=== PATIENT | female | born 1960 | race African-American/Black ===

== ENCOUNTER 2017-10-08 10:37 | Emergency (ER) | payer OTHER ==
[~2017-10-08] VITALS: Ht 160 cm; Wt 97.5 kg
[~2017-10-08 10:37] MED LIST: ASPIR 8181 MG ORAL; CYCLOBENZAPRINE10 MG ORAL; HYDROCHLOROTHIA25 MG ORAL; IBUPROFEN800 MG ORAL; METFORMIN HCL500 M1 ORAL; NORVASC10 MG ORAL; TRAMADOL HCL50 MG ORAL
[2017-10-08] MEDS ORDERED: GLIPIZIDE5 MG ORAL (10:47)
[2017-10-08] MEDS ORDERED: NAPROXEN500 M2 ORAL (10:47)
[2017-10-08] MEDS ORDERED: METFORMIN HCL1000 M1 ORAL (10:47)
[2017-10-08] MEDS ORDERED: JANUVIA100 MG ORAL (10:47)
[2017-10-08] MEDS ORDERED: LIDOCAINE700 M1 TP (11:07)
[2017-10-08] MEDS ORDERED: ROBAXIN-750750 MG PO (11:07)
[2017-10-08] MEDS ORDERED: Acetaminophen 500mg (ES) tab ORAL ONE (11:15)
[2017-10-08 11:18] VITALS: BP 180/96
[2017-10-08 11:19] VITALS: BP 180/96
--- NOTE | 2017-10-08 11:36 | Emergency Room Report ---
History of Present Illness General Chief Complaint: Lower Back Pain or Injury Source: Patient Present Illness HPI 57-year-old female, sitting hypertension diabetes p/w back pain for 2 days. Patient states pain started when she bent down to lift something heavy. Pain is localized to right lower back, sharp in nature, radiating down leg. Movement worsens pain. There are no alleviating factors. Patient took pain medications with minimal relief. This is the first occurrence of back pain. Denies trauma. Denies lower extremity weakness/numbness, no bowel/bladder retention or incontinence, saddle anesthesia. Denies fever, chills, abdominal pain, n/v, dysuria/hematuria. No history of IVDA Allergies: Coded Allergies: No Known Allergies (Unverified , 05/17/14) Patient History Past Medical History: see triage record Past Surgical History: none Pertinent Family History: none Last Menstrual Period: Post Reviewed Nursing Documentation: PMH: Agreed, PSxH: Agreed Nursing Documentation-PMH Hx Hypertension: Yes Hx Diabetes: Yes - DM2 Review of Systems All Other Systems: negative except mentioned in HPI Physical Exam Vital Signs Date Time Temp Pulse Resp B/P (MAP) Pulse Ox O2 Delivery O2 Flow Rate FiO2 10/08/17 10:40 98.0 94 19 188/106 97 Room Air 98.1 Sp02 EP Interpretation: reviewed, normal General Appearance: normal inspection, well appearing, no apparent distress, alert, GCS 15, non-toxic Head: normocephalic, atraumatic Eyes: bilateral eye normal inspection, bilateral eye PERRL, bilateral eye EOMI ENT: normal ENT inspection, normal pharynx, normal voice, moist mucus membranes Neck: normal inspection, full range of motion, supple Respiratory: normal inspection, lungs clear, normal breath sounds, no respiratory distress, no retraction, no wheezing, speaking full sentences, chest symmetrical Cardiovascular #1: normal inspection, regular rate, rhythm, no edema, normal capillary refill Cardiovascular #2: 2+ radial (R), 2+ radial (L) Gastrointestinal: normal inspection, non tender, soft, non-distended, no guarding Musculoskeletal: other - Right-sided paraspinal lower lumbar tenderness, no midline tenderness, full range of motion arteries, able to bear weight on both legs, gait is normal Neurologic: normal inspection, alert, oriented x3, responsive, motor strength/ tone normal, sensory intact, normal gait, speech normal Psychiatric: normal inspection, judgement/insight normal, memory normal Skin: normal inspection, normal color, no rash, warm/dry, well hydrated, normal turgor Medical Decision Making Diagnostic Impression: Primary Impression: Low back pain ER Course 57-year-old female p/w back pain DDX: Likely musculoskeletal back pain vs. muscular strain vs. sciatica Lumbar fracture is unlikely given patients age, no midline tenderness, no history of trauma, and that patient is ambulatory. Therefore, at this time no imaging is indicated Serious diagnoses such as cord compression, epidural abscess is unlikely in this patient given the clinical scenario and abscess of neurological symptoms or findings. Patient appears nontoxic. Plan: Tylenol, lidocaine patch ER course: Patient has remained nontoxic appearing and ambulatory in the ED. Pain improved w/ medications Disposition: Patient will be discharged to home with prescription of Robaxin and lidocaine patch Strict precautions discussed with patient on when to emergently return to the ED which includes severe/worsening back pain, leg weakness/numbness, urinary retention/incontinence, fever or chills, which may indicate severe illness. Patient is to follow up with their PMD within 5 days. Patient agrees with plan. Please note that this Emergency Department Report was dictated using [employer] paster technology software, occasionally this can lead to erroneous entry secondary to interpretation by the dictation equipment. Last Vital Signs Date Time Temp Pulse Resp B/P (MAP) Pulse Ox O2 Delivery O2 Flow Rate FiO2 10/08/17 11:19 98.0 94 19 180/96 97 Room Air 208.4 Disposition: HOME, SELF-CARE Condition: Improved Scripts Methocarbamol* (ROBAXIN-750*) 750 Mg Tablet 750 MG PO QID, #28 TAB 0 Refills Prov: Mitchel Mitchell M.D. 10/08/17 Lidocaine (Lidocaine) 1 Each Adh..patch 700 MG TP EVERY 12 HOURS, #30 PATCH Prov: Mitchel Mitchell M.D. 10/08/17 Referrals: [facility] (PCP) Patient Instructions: Back Pain, Adult Mitchel Mitchell M.D. Oct 08, 2017 11:36
== END 2017-10-08 11:21 | disposition home or self-care (01) ==
LOC: EMR 10:52
DX: M54.5 Low back pain (principal); I10 Essential (primary) hypertension; E11.9 Type 2 diabetes mellitus without complications
CPT/HCPCS: 99284

== ENCOUNTER 2018-05-21 20:38 | Emergency (ER) | payer OTHER ==
[~2018-05-21] VITALS: Ht 162.6 cm; Wt 101.2 kg
[~2018-05-21 20:38] MED LIST changes: +GLIPIZIDE5 MG ORAL; +JANUVIA100 MG ORAL; +LIDOCAINE700 M1 TP; +METFORMIN HCL1000 M1 ORAL; +NAPROXEN500 M2 ORAL; +ROBAXIN-750750 MG PO
[2018-05-21] MEDS ORDERED: AZOPT10 ML OP (20:47)
[2018-05-21 20:49] VITALS: BP 155/72
[2018-05-21] MEDS ORDERED: Tylenol #3 tab (300mg/30mg) ORAL ONE (21:15)
[2018-05-21] MEDS ORDERED: SILVADENE20 GM TP (21:17)
[2018-05-21] MEDS ORDERED: ACETAMINOPHEN-1 EAC1 ORAL (21:17)
[2018-05-21] MEDS ORDERED: CEPHALEXIN500 MG ORAL (21:28)
[2018-05-21] MEDS ORDERED: FLUCONAZOLE150 MG ORAL (21:28)
[2018-05-21 21:34] VITALS: BP 147/76
[2018-05-21 21:35] VITALS: BP 147/76
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
== END 2018-05-21 21:35 | disposition home or self-care (01) ==
LOC: EMR 21:13
DX: T65.891A Toxic effect of other specified substances, accidental (unintentional), initial encounter (principal); T21.52XA Corrosion of first degree of abdominal wall, initial encounter; T32.0 Corrosions involving less than 10% of body surface; Y92.89 Other specified places as the place of occurrence of the external cause; E11.9 Type 2 diabetes mellitus without complications
CPT/HCPCS: 99283

== ENCOUNTER 2019-05-14 20:11 | Emergency (ER) | payer OTHER ==
[~2019-05-14] VITALS: Ht 160 cm; Wt 96.2 kg
[~2019-05-14 20:11] MED LIST changes: +ACETAMINOPHEN-1 EAC1 ORAL; +AZOPT10 ML OP; +CEPHALEXIN500 MG ORAL; +FLUCONAZOLE150 MG ORAL; +SILVADENE20 GM TP
--- NOTE | 2019-05-14 20:17 | NUR ---
Called pt; currently not in waiting room.
--- NOTE | 2019-05-14 20:25 | NUR ---
Pt no longer in waiting room
[2019-05-14 21:00] VITALS: BP 150/88
--- NOTE | 2019-05-14 21:00 | NUR ---
ED Nurse Note: Patient walked into ED c/o left ear abscess that has been an ongoing issue for the past few days, patient rates her pain a 6/10 pain. patient is alert and oriented 4, patient placed Tx2. will wait for further orders
[2019-05-14] MEDS ORDERED: Lidocaine 1% Plain 30 ml INJ ONE (21:15)
[2019-05-14] MEDS ORDERED: MUPIROCIN22 GM TOPIC (21:25)
[2019-05-14] MEDS ORDERED: BACTRIM DS TAB1 EAC1 ORAL (21:25)
[2019-05-14] MEDS ORDERED: FLUCONAZOLE150 MG ORAL (21:25)
--- NOTE | 2019-05-14 21:25 | Emergency Room Report ---
History of Present Illness General Chief Complaint: Skin Rash/Abscess Source: Patient Present Illness HPI This is a 58-year-old female who presents with left ear pain. She woke up yesterday with a small swelling to the back of her left ear over where she had a piercing done 13 years ago. She try to squeeze it and is not getting better. Initially she said there was some pus that came out but it got more swollen. No fever chills. Worse with palpation. Denies any other complaint. Her pain is 7 out of 10. Allergies: Coded Allergies: No Known Allergies (Unverified , 05/17/14) Patient History Past Medical History: see triage record, old chart reviewed Past Surgical History: none Pertinent Family History: none Social History: Denies: smoking Last Menstrual Period: na Now: No Immunizations: other Reviewed Nursing Documentation: PMH: Agreed; PSxH: Agreed Nursing Documentation-PMH Hx Hypertension: Yes Hx Diabetes: Yes - DM2 Review of Systems Eye: Denies: eye pain, blurred vision ENT: Denies: ear pain, nose congestion, throat swelling Respiratory: Denies: cough, shortness of breath Cardiovascular: Denies: chest pain, palpitations Gastrointestinal: Denies: abdominal pain, diarrhea, nausea, vomiting Musculoskeletal: Denies: back pain, joint pain Skin: Denies: rash Neurological: Denies: headache, numbness Endocrine: Denies: increased thirst, increased urine Hematologic/Lymphatic: Denies: easy bruising All Other Systems: negative except mentioned in HPI Physical Exam Vital Signs Date Time Temp Pulse Resp B/P (MAP) Pulse Ox O2 Delivery O2 Flow Rate FiO2 05/14/19 20:56 98.2 98 16 157/102 (120) 96 Vitals with high blood pressure Sp02 EP Interpretation: reviewed, normal General Appearance: well appearing, no apparent distress, alert Head: normocephalic, atraumatic Eyes: bilateral eye PERRL, bilateral eye EOMI ENT: hearing grossly normal, normal pharynx Neck: full range of motion, supple, no meningismus, other - Left ear: On the back of the ear near the top, there is a small erythema and swelling. Tender to palpation. Less than 1 cm. Respiratory: chest non-tender, lungs clear, normal breath sounds Cardiovascular #1: regular rate, rhythm, no murmur Gastrointestinal: normal bowel sounds, non tender, no mass, no organomegaly, no bruit, non-distended Musculoskeletal: back normal, gait/station normal, normal range of motion Psychiatric: mood/affect normal Procedures Incision and Drainage Incision and Drainage : Consent: Verbal Site: Left ear Blade Size: 11 I & D Procedure: betadine prep Wound Location: other - Ear, left Patient Tolerated: Well Complications: None Progress Area cleaned with Betadine and chlorhexidine. Using insulin needle, I injected 0.1 cc of 1% lidocaine without epinephrine. I made a small incision and expressed small amount of pus. Patient tolerated procedure without any problem. Medical Decision Making Diagnostic Impression: Primary Impression: Abscess of left external ear ER Course Patient with small abscess of her ear. Will discharge home. Last Vital Signs Date Time Temp Pulse Resp B/P (MAP) Pulse Ox O2 Delivery O2 Flow Rate FiO2 05/14/19 20:56 98.2 98 16 157/102 (120) 96 Status: improved Disposition: HOME, SELF-CARE Condition: Stable Scripts Fluconazole (FLUCONAZOLE) 150 Mg Tablet 150 MG ORAL DAILY, #1 TAB 0 Refills Prov: Messi Argueta MD 05/14/19 Trimethoprim/Sulfamethoxazole 160/800* (BACTRIM DS TABLET*) 1 Each Tablet 1 TAB ORAL Q12H, #14 TAB 0 Refills Prov: Messi Argueta MD 05/14/19 Mupirocin* (MUPIROCIN*) 22 Gm Oint...g. 1 APPLIC TOPIC THREE TIMES A DAY, #22 GM Prov: Messi Argueta MD 05/14/19 Patient Instructions: Abscess Additional Instructions: Follow-up with your doctor in 7 days. Return if worse. Messi Argueta MD May 14, 2019 21:25
[2019-05-14 21:30] VITALS: BP 142/80
--- NOTE | 2019-05-14 21:30 | NUR ---
ER DISCHARGE NOTE: Patient is cleared to be discharged per ERMD, pt is aox4, on room air, with stable vital signs. pt was given dc instructions, pt was able to verbalize understanding, pt id band and removed without complications. pt is able to ambulate with steady gait. pt took all belongings.
== END 2019-05-14 21:30 | disposition home or self-care (01) ==
LOC: EMR 21:29
DX: H60.02 Abscess of left external ear (principal); E11.9 Type 2 diabetes mellitus without complications; I10 Essential (primary) hypertension
CPT/HCPCS: 69000; J2001; Z7502; 99283

== ENCOUNTER 2020-01-01 20:07 | Emergency (ER) | payer OTHER ==
[~2020-01-01] VITALS: Ht 160 cm; Wt 89.8 kg
[~2020-01-01 20:07] MED LIST changes: +BACTRIM DS TAB1 EAC1 ORAL; +MUPIROCIN22 GM TOPIC
[2020-01-01 20:20] VITALS: BP 132/80
--- NOTE | 2020-01-01 20:20 | NUR ---
ED Nurse Note: pt ambulated into ed from home CO rash on lower stomach x 3 weeks. Pt stated that she had a telehealth visit with PCP 2 weeks ago and was prescribed 2 types of topical creams for affected area. Noteable redness in localized area. Pt aao x 4, ambulatory with steady gait. Awaiting ERMD at bedside.
--- NOTE | 2020-01-01 20:20 | NUR ---
ED Nurse Note: Pt states topical creams previously prescribed are clotrimazole and triple antibiotic
--- NOTE | 2020-01-01 20:35 | NUR ---
ED Nurse Note: ERMD at bedside
--- NOTE | 2020-01-01 20:36 | Emergency Room Report ---
History of Present Illness General Chief Complaint: Skin Rash/Abscess Source: Patient Present Illness HPI This patient states that she has had a rash in between the folds of her fat rolls on her abdomen for the past month. She has been speaking to her primary care physician remotely and has been on Chlortrimazole topical cream. She states that the rash persists despite using clotrimazole and triple antibiotic ointment. She has no other complaints. She denies fever or chills. She denies shortness of breath. She has no other lesions. She has no other complaints. 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 Patient History Past Medical History: see triage record, DM, HTN, other - glaucoma Social History: Denies: smoking, alcohol use, drug use Now: No Reviewed Nursing Documentation: PMH: Agreed; PSxH: Agreed Nursing Documentation-PMH Past Medical History: No History, Except For Hx Hypertension: Yes Hx Diabetes: Yes - DM2 Review of Systems All Other Systems: negative except mentioned in HPI Physical Exam Vital Signs Date Time Temp Pulse Resp B/P (MAP) Pulse Ox O2 Delivery O2 Flow Rate FiO2 01/01/20 20:13 97.9 68 18 132/80 (97) 96 Room Air Sp02 EP Interpretation: reviewed, normal General Appearance: no apparent distress, alert, GCS 15, non-toxic Head: normocephalic, atraumatic Eyes: bilateral eye normal inspection ENT: hearing grossly normal, no angioedema, normal voice Neck: normal inspection, full range of motion Respiratory: no respiratory distress, no retraction, no accessory muscle use, speaking full sentences Gastrointestinal: normal inspection, other - See below in skin Rectal: deferred Musculoskeletal: gait/station normal, non-tender Neurologic: alert, motor strength/tone normal, oriented x3, responsive, speech normal Psychiatric: judgement/insight normal, memory normal, mood/affect normal, no suicidal/homicidal ideation Skin: other - Between the skin folds of the abdomen there is a [id number] area of erythema with satellite lesions. Medical Decision Making Diagnostic Impression: Primary Impression: Yeast dermatitis Additional Impression: Tinea ER Course Based on physical exam findings, this patient appears to have a yeast dermatitis. The patient is on clotrimazole but not having response. I will place the patient on nystatin powder and cream. The patient has no emergency medical condition. The symptoms are mild. The patient was also instructed on keeping the skin folds dry and . She indicated understanding. The patient is given close return precautions and follow-up instructions. Last Vital Signs Date Time Temp Pulse Resp B/P (MAP) Pulse Ox O2 Delivery O2 Flow Rate FiO2 01/01/20 20:20 97.9 68 18 132/80 96 Room Air Status: improved Disposition: HOME, SELF-CARE Condition: Improved Referrals: [facility] (PCP) Patient Instructions: Skin Yeast Infection Lili Campbell DO January 01, 2020 20:36
[2020-01-01] MEDS ORDERED: NYSTATIN15 G2 TP (20:56)
[2020-01-01] MEDS ORDERED: NYSTATIN15 GM TOPIC (20:56)
[2020-01-01 21:00] VITALS: BP 132/80
--- NOTE | 2020-01-01 21:00 | NUR ---
ER DISCHARGE NOTE: Patient is cleared to be discharged home per ERMD, pt is aox4, on room air, with stable vital signs. pt was given dc and prescription instructions, pt was able to verbalize understanding, pt id band removed. pt is able to ambulate with steady gait. pt took all belongings.
== END 2020-01-01 21:00 | disposition home or self-care (01) ==
LOC: EMR 20:23
DX: L30.9 Dermatitis, unspecified (principal); B37.9 Candidiasis, unspecified; B35.9 Dermatophytosis, unspecified; E11.9 Type 2 diabetes mellitus without complications; I10 Essential (primary) hypertension
CPT/HCPCS: 99282